=== PATIENT | female | born 1955 | race Caucasian/White ===

== ENCOUNTER 2017-04-05 18:10 | Emergency (ER) | payer OTHER ==
[~2017-04-05] VITALS: Ht 160 cm; Wt 73.6 kg
[~2017-04-05 18:10] MED LIST: AMOXICILLIN500 M1 PO; CIPRO500 MG PO; CIPROFLOXACIN500 M1 PO; ELAVIL10 MG PO; ENDOCET 5-3251 EACH PO; FLAGYL500 MG PO; FLEXERIL10 MG PO; INDOMETHACIN50 MG PO; KEFLEX500 MG PO; LISINOPRIL30 MG PO; MOBIC15 MG PO; MOTRIN600 MG PO; NAPROSYN500 MG PO; PERCOCET 10/1 TABLET PO; PERCOCET 5/31 TABLET PO; PREDNISONE20 MG PO; PRINIVIL20 MG PO; SIMVASTATIN20 MG PO; ULTRACET1 TABLET PO; VALIUM5 MG PO; ZESTRIL,PRINIVI20 MG PO
[2017-04-05] MEDS ORDERED: MOBIC7.5 MG PO (21:09)
[2017-04-05] MEDS ORDERED: PERCOCET 5/31 TABLET PO (21:09)
[2017-04-05 21:21] VITALS: BP 174/91
== END 2017-04-05 21:22 | disposition home or self-care (01) ==
LOC: EME 18:10
DX: M54.12 Radiculopathy, cervical region (principal); G89.29 Other chronic pain; Z88.5 Allergy status to narcotic agent
CPT/HCPCS: 99281; 99283

== ENCOUNTER 2017-07-24 13:08 | Emergency (ER) | payer OTHER ==
[~2017-07-24] VITALS: Ht 157.5 cm; Wt 74.5 kg
[~2017-07-24 13:08] MED LIST changes: +MOBIC7.5 MG PO
[2017-07-24 13:46] LABS: HEMATOCRIT 41.7 % (36.0-46.0); MCH 30.8 PG (29.0-34.0); MCHC 33.6 G/DL (30.0-36.0); MCV 91.9 FL (83-99); PLATELET COUNT 168 K/uL (156-360); RBC DIS.WIDTH-CV 13.2 % (11.8-14.6); RBC DIS.WIDTH-SD 44.4 % (39-53); RED BLOOD COUNT 4.54 M/uL (3.80-5.20); WHITE BLOOD COUNT 8.8 K/uL (4.1-10.2)
[2017-07-24 13:58] LABS: CHLORIDE 103 mEq/L (99-109); POTASSIUM 5.3 mEq/L (3.7-5.4); SODIUM 139 mEq/L (136-147)
[2017-07-24 13:59] LABS: GLUCOSE 81 mg/dL (70-99)
[2017-07-24 14:03] LABS: CREATININE 0.8 mg/dL (0.6-1.3); GFR ESTIMATE (CALCULATED) > 59 mL/min/
[2017-07-24 14:04] LABS: UREA NITROGEN (BUN) 18 mg/dL (9-23)
[2017-07-24 14:05] LABS: TROP-I INTERPRETATION NEGATIVE; TROPONIN-I < 0.01 ng/mL (0.0-0.30)
[2017-07-24] MEDS ORDERED: FLEXERIL10 MG PO (14:10)
[2017-07-24 15:04] VITALS: BP 131/82
== END 2017-07-24 15:05 | disposition home or self-care (01) ==
LOC: EME 13:08
DX: R07.89 Other chest pain (principal); M62.830 Muscle spasm of back; I10 Essential (primary) hypertension; F17.200 Nicotine dependence, unspecified, uncomplicated; Z88.5 Allergy status to narcotic agent
CPT/HCPCS: 71046; 80048; 84484; 85027; 93005; 99281; 99284

== ENCOUNTER 2017-10-27 11:32 | Emergency (ER) | payer OTHER ==
[~2017-10-27] VITALS: Ht 157.5 cm; Wt 73.5 kg
[2017-10-27] MEDS ORDERED: ULTRAM50 MG PO (13:19)
[2017-10-27] MEDS ORDERED: LIDODERM 5% P1 PATCH TD (13:20)
[2017-10-27] MEDS ORDERED: MOTRIN600 MG PO (13:24)
[2017-10-27 13:33] VITALS: BP 170/91
== END 2017-10-27 13:34 | disposition home or self-care (01) ==
LOC: EME 11:32
DX: M54.2 Cervicalgia (principal); R50.9 Fever, unspecified; M25.511 Pain in right shoulder; M25.512 Pain in left shoulder; I10 Essential (primary) hypertension; E78.5 Hyperlipidemia, unspecified; F17.200 Nicotine dependence, unspecified, uncomplicated
CPT/HCPCS: 99281; 99284

== ENCOUNTER 2018-01-05 11:08 | Emergency (ER) | payer OTHER ==
[~2018-01-05] VITALS: Ht 157.5 cm; Wt 70.5 kg
[~2018-01-05 11:08] MED LIST changes: +LIDODERM 5% P1 PATCH TD; +ULTRAM50 MG PO
[2018-01-05 11:33] LABS: HEMATOCRIT 35.3 % (36.0-46.0); HEMOGLOBIN 12.1 G/DL (11.9-15.5); MCH 31.8 PG (29.0-34.0); MCHC 34.3 G/DL (30.0-36.0); MCV 92.7 FL (83-99); PLATELET COUNT 162 K/uL (156-360); RBC DIS.WIDTH-CV 12.7 % (11.8-14.6); RBC DIS.WIDTH-SD 43.2 % (39-53); RED BLOOD COUNT 3.81 M/uL (3.80-5.20); WHITE BLOOD COUNT 9.4 K/uL (4.1-10.2)
[2018-01-05 11:43] LABS: CHLORIDE 104 mEq/L (99-109); POTASSIUM 4.3 mEq/L (3.7-5.4); SODIUM 138 mEq/L (136-147)
[2018-01-05 11:44] LABS: GLUCOSE 129 mg/dL (70-99)
[2018-01-05 11:48] LABS: CREATININE 0.8 mg/dL (0.6-1.3); GFR ESTIMATE (CALCULATED) > 59 mL/min/
[2018-01-05 11:49] LABS: UREA NITROGEN (BUN) 21 mg/dL (9-23)
[2018-01-05] MEDS ORDERED: ROBAXIN500 MG PO (13:22)
[2018-01-05] MEDS ORDERED: PEPCID20 MG PO (13:22)
[2018-01-05] MEDS ORDERED: PERCOCET 5/31 TABLET PO (13:22)
[2018-01-05] MEDS ORDERED: MOTRIN600 MG PO (13:22)
[2018-01-05 14:02] VITALS: BP 136/79
== END 2018-01-05 14:03 | disposition home or self-care (01) ==
LOC: EME 11:08
DX: M54.9 Dorsalgia, unspecified (principal); R07.9 Chest pain, unspecified; F17.200 Nicotine dependence, unspecified, uncomplicated; Z88.5 Allergy status to narcotic agent
CPT/HCPCS: 71046; 80048; 85027; 93005; 99281; 99284; J1885